=== PATIENT | male | born 1965 | race Two or more races ===

== ENCOUNTER 2020-12-14 01:58 | Emergency (ER) | payer SELFPAY ==
[~2020-12-14] VITALS: Ht 340.4 cm; Wt 79.4 kg
[2020-12-14 02:16] VITALS: BP 157/108
== END 2020-12-14 02:23 | disposition left against medical advice (07) ==
LOC: ER 02:06
DX: S40.811A Abrasion of right upper arm, initial encounter (principal); Z53.21 Procedure and treatment not carried out due to patient leaving prior to being seen by health care provider; V43.52XA Car driver injured in collision with other type car in traffic accident, initial encounter; Y93.89 Activity, other specified; Y92.410 Unspecified street and highway as the place of occurrence of the external cause; Y99.8 Other external cause status